=== PATIENT | female | born 1955 | race Caucasian/White ===

== ENCOUNTER 2018-03-12 15:02 | Emergency (ER) | payer OTHER, SELFPAY ==
[2018-03-12 15:45] LABS: #Basophils 0.1 thou/uL (0.0-0.2); #Eosinphils 0.4 thou/uL (0.0-0.7); #Lymphocytes 1.7 thou/uL (1.20-3.40); #Monocytes 0.5 thou/uL (0.11-0.59); #Neutrophils 3.1 thou/uL (1.40-6.50); %Basophils 1.4 % (0.0-1.0); %Eosinophils 6.6 % (0.0-10.0); %Lymphocytes 29.8 % (21.0-51.0); %Monocytes 8.7 % (0.0-10.0); %Neutrophils 53.5 % (42.0-75.0); Hemoglobin 13.8 g/dL (12.0-16.0); Mean Corpuscular HGB CONC 33.1 g/dL (32.0-36.0); Mean Corpuscular Hemoglobin 29.6 pg (27.0-31.0); Mean Corpuscular Volume 89.6 fl (81.0-99.0); Mean Platelet Volume 8.3 fL (7.4-10.4); Platelet Count 229 thou/uL (130-400); RBC Distribution Width 12.4 % (11.5-14.5); Red Blood Cell (RBC) Count 4.65 mill/uL (4.20-5.40); White Blood Cell (WBC) Count 5.8 thou/uL (4.8-10.8)
[2018-03-12 16:03] LABS: ALT (SGPT) 29 U/L (8-55); AST (SGOT) 23 U/L (5-34); Alkaline Phosphatase 76 U/L (40-150); Anion Gap 12 mmol/L (10-20); BUN (Urea Nitrogen) 20 mg/dL (9.8-20.1); Bilirubin, Total 0.5 mg/dL (0.2-1.2); Calc. Creatinine Clearance 0 mL/min (70-130); Calcium 9.4 mg/dL (7.8-10.44); Carbon Dioxide 27 mmol/L (23-31); Chloride 106 mmol/L (98-107); Estimated GFR-MDRD 68; Globulin 3.3 g/dL (2.4-3.5); Glucose 94 mg/dL (80-115); Potassium 4.3 mmol/L (3.5-5.1); Protein, Total 7.3 g/dL (6.0-8.3); Sodium 141 mmol/L (136-145)
[2018-03-12 16:05] LABS: CKMB 2.9 ng/mL (0-6.6); Troponin I Less than 0.010 ng/mL (< 0.028)
--- NOTE | 2018-03-12 19:51 | RAD ---
PORTABLE CHEST 03/12/18 An AP portable film at 1529 shows mild cardiomegaly. There is probably some slight prominence of the upper lobe vessels but no overt edema or large pleural effusion. No focal pulmonary infiltrate was se en. IMPRESSION: Mild cardiomegaly and slight congestion of upper lobe vessels. POS: HOME
== END 2018-03-12 17:05 | disposition home or self-care (01) ==
LOC: BURERS 15:02
DX: R55 Syncope and collapse (principal); M19.90 Unspecified osteoarthritis, unspecified site; Z79.899 Other long term (current) drug therapy
CPT/HCPCS: 71045; 80053; 82553; 83880; 84484; 85025; 85379; 93005

== ENCOUNTER 2018-04-26 11:17 | Emergency (ER) | payer SELFPAY ==
--- NOTE | 2018-04-26 16:57 | RAD ---
LEFT FOOT THREE VIEWS: 04/26/2018 FINDINGS: There is a small piece of bone just lateral to the anterior calcaneus. Its margins are rather smooth . It is a little too proximal to be an os cuboidale, but its smooth margins are more suggestive of a n ossicle or perhaps an old bony avulsion than something acute. My only hesitation is that I am told this is the exact site of the patient's pain. It might bear follow-up images and/or orthopedic refe rral. Currently, the appearance is less suggestive of a recent injury than not. The remainder of th e foot showed no acute changes. The sesamoid bones of the first MTP joint are multipartite, not unco mmon. There may be a little periosteal thickening of the proximal second metatarsal, but this does n ot appear acute either. A small calcaneal spur is present. There is ossification at the insertion o f the Achilles tendon. IMPRESSION: Small bony density just lateral to the anterior calcaneus, more likely old or an ossicle than new. Sosa cooley with clinical exam in progress. She may need a follow-up film in a few weeks. POS: HOME
== END 2018-04-26 12:14 | disposition home or self-care (01) ==
LOC: BURERS 11:17
DX: S93.602A Unspecified sprain of left foot, initial encounter (principal); Z79.899 Other long term (current) drug therapy; X58.XXXA Exposure to other specified factors, initial encounter

== ENCOUNTER 2022-04-19 20:48 | Emergency (ER) | payer MEDICARE, MEDICAID ==
[2022-04-19] MEDS ORDERED: Boostrix 0.5 ML (Tdap) VIAL ONE (21:34)
[2022-04-19] MEDS ORDERED: Fentanyl 100 MCG/2 ML VIAL ONE (21:34)
[2022-04-19] MEDS ORDERED: HYDROcodone/Acetaminophen 5/325 mg Tablet ONE (22:23)
== END 2022-04-19 22:46 | disposition home or self-care (01) ==
LOC: BURERS 20:48
DX: S52.615A Nondisplaced fracture of left ulna styloid process, initial encounter for closed fracture (principal); S52.502A Unspecified fracture of the lower end of left radius, initial encounter for closed fracture; S53.402A Unspecified sprain of left elbow, initial encounter; S70.02XA Contusion of left hip, initial encounter; M19.90 Unspecified osteoarthritis, unspecified site; Z23 Encounter for immunization; V80.010A Animal-rider injured by fall from or being thrown from horse in noncollision accident, initial encounter; Y93.52 Activity, horseback riding
CPT/HCPCS: 29125; 90471; 90715; 96372; J3010